=== PATIENT | female | born 1945 | race Caucasian/White ===

== ENCOUNTER 2021-01-30 03:40 | Emergency (ER) | payer MEDICARE, SELFPAY ==
[2021-01-30] VITALS (7 sets, daily range): BP systolic 84–111; BP diastolic 39–50; PULSE 66–68; RESP 18–30; O2SAT 100; BMI 36.8
--- NOTE | 2021-01-30 03:49 | W.ED.GIBLEED ---
HPI - GI Bleed General: Chief complaint: GI Bleed Stated complaint: RECTAL BLEEDING Time Seen by Provider: 01/30/21 03:44 Source: patient and EMS Mode of arrival: EMS Limitations: no limitations History of Present Illness: HPI Narrative: 75-year-old female states that she had a colonoscopy done yesterday at [facility] in [place] she had a mass removed and some polyps. States she got an overnight had a very large bloody bowel movement and has had some weakness since then. She denies any dark stools states is all bright red. Denies any vomiting blood denies any pain. Associated symptoms: Denies chills, easy bruising, fever(s), headache(s) or rash Review of Systems Const: Denies: fever(s), chills, body aches or change in appetite Eyes: Denies: blurry vision or eye discomfort ENMT: Denies: throat pain or dental pain Card: Denies: chest pain Resp: Denies: dyspnea GI: Reports: hematochezia : Denies: dysuria Musc: Denies: neck pain or back pain Skin/Breast: Denies: rash Neuro: Denies: headache(s) Psych: Denies: depression Bruce/Lymph: Denies: easy bruising All/Imm: Denies: urticaria Physical Exam Const: COMMON NORMALS: no acute distress and patient oriented x3 GENERAL APPEARANCE: ill appearing HENMT: COMMON NORMALS: normocephalic and atraumatic HEAD & SCALP: normocephalic and atraumatic Eye: COMMON NORMALS: Equal, round and reactive pupils present and EOMs intact bilaterally PUPIL: Yes Equal, round and reactive pupils present Neck/C-Spine: COMMON NORMALS: full ROM and supple Chest: COMMONS NORMALS: normal inspection of the chest and normal palpation of entire chest wall Resp: COMMON NORMALS: normal respiratory effort, No retractions, No use of accessory muscles and clear to auscultation bilaterally AUSCULTATION: clear to auscultation bilaterally Cardio: COMMON NORMALS: regular rate, regular rhythm and No murmurs present (Cardio) RATE: regular rate RHYTHM: regular rhythm GI: COMMON NORMALS: Normal to inspection, nondistended, normoactive bowel sounds present, Soft to palpation, non-tender and no masses PALPATION: Yes Soft to palpation : OTHER: Patient had a bowel movement here very large amount of blood with blood clots Extremity: COMMON NORMALS: normal to inspection and full ROM Neuro: COMMON NORMALS: patient oriented x3, moves all extremities and no focal motor deficits Psych: COMMON NORMALS: mental status grossly normal, Normal thought process present and cooperative THOUGHT PROCESS: Normal thought process present Skin: COMMON NORMALS: no rashes or lesions noted and no wounds GENERAL SKIN EXAM: no rashes or lesions noted Course Vital Signs: Vital signs: Vital Signs Pulse Rate 66 01/30/21 03:40 Respiratory Rate 18 01/30/21 03:40 Blood Pressure 111/39 01/30/21 03:40 Pulse Oximetry 100 01/30/21 03:40 MDM - GI Bleed MDM Narrative: Medical decision making narrative: Patient presents here with a massive lower GI bleed she had a large bloody bowel movement at home and then had another large one here with blood clots she syncopized with both and was very diaphoretic and hypotensive here. Will transfuse 2 units. Patient's family requested transfer back to [facility] where she had just been discharged yesterday we also have no ICU availability so will transfer there due to continuity of care and ICU availability patient stable here at this time after blood transfusion. Lab Data: Labs: Lab Results 01/30/21 01/30/21 04:20 04:20 WBC 19.4 10^3/uL H 10 ^3/uL (4.0-10.0) RBC 2.47 10^6/uL L 10 ^6/uL (4.1-5.3) Hgb 7.1 g/dL L g/dL (11.5-15.3) Hct 22.3 % L % (37.0-47.0) MCV 90.3 fl fl (81-99) MCH 28.7 pg pg (28.0-34.0) MCHC 31.8 g/dL g/dL (30.0-36.0) RDW 14.6 % % (12.1-15.1) Plt Count 441 10^3/cmm H 10 ^3/cmm (130-400) MPV 11.0 fL H fL (7.4-10.4) Neut % (Auto) 79.5 % % Lymph % (Auto) 14.5 % % [place] % (Auto) 4.0 % % Eos % (Auto) 0.4 % % Baso % (Auto) 0.4 % % Neut # (Auto) 15.41 10^3/uL H 1 0^3/uL (1.8-7.7) Lymph # (Auto) 2.8 10^3/uL 10^3/ uL (0.8-4.8) [place] # (Auto) 0.8 10^3/uL 10^3/ uL (0.2-0.9) Eos # (Auto) 0.1 10^3/uL 10^3/ uL (0.0-0.8) Baso # (Auto) 0.1 10^3/uL 10^3/ uL (0.0-0.1) Nucleated RBC % (a uto) 0 % % Nucleated RBCs # 0.0 /100WBC /100W BC PT 14.70 SECONDS SEC ONDS (12.1-14.9) INR 1.11 (0.8-1.2) Discharge Plan Discharge Patient Disposition: Xfer Short-Term Hosp Clinical Impression: Lower gastrointestinal hemorrhage, Anemia Condition: Stable Coding Level of Care Code ED System Support Administrator for Chg Fwd Exam Comprehensive
[2021-01-30 04:32] LABS: Basophils # 0.1 10^3/uL (0.0-0.1); Basophils % 0.4 %; Eosinophils # 0.1 10^3/uL (0.0-0.8); Eosinophils % 0.4 %; Hematocrit 22.3 % (37.0-47.0); Hemoglobin 7.1 g/dL (11.5-15.3); Lymphocytes # 2.8 10^3/uL (0.8-4.8); Lymphocytes % 14.5 %; Mean Corpuscular HGB Conc 31.8 g/dL (30.0-36.0); Mean Corpuscular Hemoglobin 28.7 pg (28.0-34.0); Mean Corpuscular Volume 90.3 fl (81-99); Monocytes # 0.8 10^3/uL (0.2-0.9); Neutrophils # 15.41 10^3/uL (1.8-7.7); Neutrophils % 79.5 %; Nucleated Red Blood Cells % 0 %; Platelet Count 441 10^3/cmm (130-400); Red Blood Count 2.47 10^6/uL (4.1-5.3); Red Cell Distribution Width 14.6 % (12.1-15.1); White Blood Count 19.4 10^3/uL (4.0-10.0)
[2021-01-30 05:11] LABS: INR 1.11 (0.8-1.2)
[2021-01-30] MEDS: sodium chloride 0.9% (100 ml) 100 ML (05:38)
--- NOTE | 2021-01-30 05:40 | PC.NURSE ---
Addendum entered by Melanie De La Cruz RN 01/30/21 05:52: unit [id number] ONEG EXP 03-02-21 HR 68 RESP 30 BP 88/44 100% 1L O2 Witnessed by Mahin Clemente RN Original Note: O neg emergent blood started at 0538.
--- NOTE | 2021-01-30 05:57 | PC.NURSE ---
Unable to obtain a temp orally or axillary. Leila hugger in place.
--- NOTE | 2021-01-30 06:26 | PC.NURSE ---
2nd emergent unit of blood initiated 0630 Unit [id number] A Pos Exp 02/02/21 [id number] Verified by [email or web address] HR69 BP 93/50 100% O2 NC 2L RR 24
[2021-01-30] MEDS: sodium chloride 0.9% 1,000 ML 999 ML IV (06:30)
[2021-01-30 06:47] LABS: Alanine Aminotransferase 23 U/L (0-33); Alkaline Phosphatase 63 IU/L (35-105); Anion Gap 19.4 (5-19); Aspartate Amino Transferase 12 U/L (0-32); Blood Urea Nitrogen 19 mg/dL (8-23); Carbon Dioxide 18 mmol/L (22-29); Chloride 103 mmol/L (98-107); Globulin 1.6 g/dL (1.3-4.6); Glucose 423 mg/dL (65-115); Osmolality Calculated 302 mOsm/kg (285-295); Potassium 4.4 mmol/L (3.5-5.1); Sodium 136 mmol/L (136-145); Total Bilirubin 0.5 mg/dL (0.15-1.2); Total Protein 4.6 g/dL (6.6-8.7)
--- NOTE | 2021-01-30 06:52 | PC.NURSE ---
0640 air evac arrived to transport pt.
--- NOTE | 2021-01-31 23:33 | PC.NURSE ---
Addendum to chartinrd unit of blood was sent with air evac for transfusion en route.
== END 2021-01-30 06:50 | disposition short-term general hospital (02) ==
PROVIDERS: Emergency Provider Emergency Medicine
DX: K92.2 Gastrointestinal hemorrhage, unspecified (principal); D64.9 Anemia, unspecified
CPT/HCPCS: 36430; 80053; 85025; 85610; 86850; 86900; 86920; 99291; 99292; J7030; P9016

== ENCOUNTER 2021-02-09 00:35 | Observation (INO) | payer MEDICARE, SELFPAY ==
[2021-02-09] VITALS (15 sets, daily range): BP systolic 146–193; BP diastolic 50–77; PULSE 71–82; RESP 15–20; TEMP 36.6–36.8; O2SAT 97–99; BMI 36.8; BMI 37.6
--- NOTE | 2021-02-09 00:40 | W.ED.WEAKNES ---
HPI - Weakness General: Chief complaint: Weakness Stated complaint: Weakness/ hyperglycemia Time Seen by Provider: 02/09/21 00:35 Source: patient and EMS Mode of arrival: EMS Limitations: no limitations History of Present Illness: HPI Narrative: 75-year-old female who has a history of GI bleeds had actually seen her 1 week ago where she had a severe episode of lower GI bleed after a GI scope I transfused her here and transferred to [place] she states she left there 1 week ago they had to do no other intervention she states the bleeding stopped on its own she is been home for a week states that today she has been having increasing weakness and her blood sugar is gotten high she states that it was running in the 400s and over 500 today she takes Lantus she believes she took her right dose she denies any dysuria denies any fever denies any more blood in her stool denies any worsening improving factors. Associated symptoms: Denies chest pain, chills, dysuria, easy bruising, fever(s), headache(s), nausea or vomiting Review of Systems Const: Denies: fever(s), chills, body aches or change in appetite Eyes: Denies: blurry vision or eye discomfort ENMT: Denies: throat pain or dental pain Card: Denies: chest pain Resp: Denies: dyspnea GI: Denies: abdominal pain, nausea, vomiting or diarrhea : Denies: dysuria Musc: Denies: neck pain or back pain Skin/Breast: Denies: rash Neuro: Denies: headache(s) Psych: Denies: depression Bruce/Lymph: Denies: easy bruising All/Imm: Denies: urticaria Physical Exam Const: COMMON NORMALS: no acute distress, patient oriented x3 and healthy appearing HENMT: COMMON NORMALS: normocephalic and atraumatic HEAD & SCALP: normocephalic and atraumatic Eye: COMMON NORMALS: Equal, round and reactive pupils present and EOMs intact bilaterally PUPIL: Yes Equal, round and reactive pupils present Neck/C-Spine: COMMON NORMALS: full ROM and supple Chest: COMMONS NORMALS: normal inspection of the chest and normal palpation of entire chest wall Resp: COMMON NORMALS: normal respiratory effort, No retractions, No use of accessory muscles and clear to auscultation bilaterally AUSCULTATION: clear to auscultation bilaterally Cardio: COMMON NORMALS: regular rate, regular rhythm and No murmurs present (Cardio) RATE: regular rate RHYTHM: regular rhythm GI: COMMON NORMALS: Normal to inspection, nondistended, normoactive bowel sounds present, Soft to palpation, non-tender and no masses PALPATION: Yes Soft to palpation Extremity: COMMON NORMALS: normal to inspection and full ROM Neuro: COMMON NORMALS: patient oriented x3, moves all extremities and no focal motor deficits Psych: COMMON NORMALS: mental status grossly normal, Normal thought process present and cooperative THOUGHT PROCESS: Normal thought process present Skin: COMMON NORMALS: no rashes or lesions noted and no wounds GENERAL SKIN EXAM: no rashes or lesions noted Course Vital Signs: Vital signs: Vital Signs Temperature 97.8 F 02/09/21 00:37 Pulse Rate 71 02/09/21 00:37 Respiratory Rate 18 02/09/21 00:37 Blood Pressure 146/50 02/09/21 00:37 Pulse Oximetry 99 02/09/21 00:37 MDM - Weakness MDM Narrative: Medical decision making narrative: Patient presents with generalized weakness could be due to her anemia along with her hyperglycemia patient is anemic with a hemoglobin of 6.8 her blood pressures here been stable she has no signs of hemodynamic compromise. Rectal exam showed brown stool that was Hemoccult positive no signs of any large bleeding will transfuse patient patient also given insulin for hyperglycemia I spoke to the hospitalist will admit. Lab Data: Labs: Lab Results 02/09/21 02/09/21 02/09/21 00:55 01:30 01:30 WBC 10.3 10^3/uL H 10 ^3/uL (4.0-10.0) RBC 2.43 10^6/uL L 10 ^6/uL (4.1-5.3) Hgb 6.8 g/dL L g/dL (11.5-15.3) Hct 23.7 % L % (37.0-47.0) MCV 97.5 fl fl (81-99) MCH 28.0 pg pg (28.0-34.0) MCHC 28.7 g/dL L g/dL (30.0-36.0) RDW 14.6 % % (12.1-15.1) Plt Count 304 10^3/cmm 10^3 /cmm (130-400) MPV 10.5 fL H fL (7.4-10.4) Neut % (Auto) 82.6 % % Lymph % (Auto) 11.6 % % [place] % (Auto) 3.9 % % Eos % (Auto) 0.8 % % Baso % (Auto) 0.6 % % Neut # (Auto) 8.48 10^3/uL H 10 ^3/uL (1.8-7.7) Lymph # (Auto) 1.2 10^3/uL 10^3/ uL (0.8-4.8) [place] # (Auto) 0.4 10^3/uL 10^3/ uL (0.2-0.9) Eos # (Auto) 0.1 10^3/uL 10^3/ uL (0.0-0.8) Baso # (Auto) 0.1 10^3/uL 10^3/ uL (0.0-0.1) Nucleated RBC % (a uto) 0 % % Nucleated RBCs # 0.0 /100WBC /100W BC Sodium 134 mmol/L L mmol /L (136-145) Potassium 5.0 mmol/L mmol/L (3.5-5.1) Chloride 103 mmol/L mmol/L (98-107) Carbon Dioxide 20 mmol/L L mmol/ L (22-29) Anion Gap 16.0 (5-19) BUN 51 mg/dL H mg/dL (8-23) Creatinine 1.2 mg/dL H mg/dL (0.5-0.9) GFR Calculation Not Reportable Glucose 437 mg/dL H mg/dL (65-115) POC Glucose 470 mg/dL H mg/dL (70-110) Calculated Osmolal ity 310 mOsm/kg H mOs m/kg (285-295) Calcium 8.8 mg/dL mg/dL (8.5-10.5) Iron TIBC % Saturation Unsat Iron Binding Total Bilirubin 0.2 mg/dL mg/dL (0.15-1.2) AST 8 U/L U/L (0-32) ALT 17 U/L U/L (0-33) Alkaline Phosphata se 79 IU/L IU/L (35-105) Total Protein 5.0 g/dL L g/dL (6.6-8.7) Albumin 3.3 g/dL L g/dL (3.5-5.2) Globulin 1.7 g/dL g/dL (1.3-4.6) Urine Color Urine Appearance Urine pH Ur Specific Gravit y Urine Protein Urine Glucose (UA) Urine Ketones Urine Blood Urine Nitrate Urine Bilirubin Urine Urobilinogen Ur Leukocyte Viri ase Urine RBC Urine WBC Ur Squamous Epith Cells Amorphous Sediment Urine Bacteria Serum Ketones Blood Type Rho(D) Type Antibody Screen Crossmatch 02/09/21 02/09/21 02/09/21 01:30 01:30 01:45 WBC RBC Hgb Hct MCV MCH MCHC RDW Plt Count MPV Neut % (Auto) Lymph % (Auto) [place] % (Auto) Eos % (Auto) Baso % (Auto) Neut # (Auto) Lymph # (Auto) [place] # (Auto) Eos # (Auto) Baso # (Auto) Nucleated RBC % (a uto) Nucleated RBCs # Sodium Potassium Chloride Carbon Dioxide Anion Gap BUN Creatinine GFR Calculation Glucose POC Glucose Calculated Osmolal ity Calcium Iron 36 ug/dL L ug/dL (37-145) TIBC 271 mcg/dl mcg/dl % Saturation 13.2 % L % (20-50) Unsat Iron Binding 235 ug/dL ug/dL (112-347) Total Bilirubin AST ALT Alkaline Phosphata se Total Protein Albumin Globulin Urine Color Urine Appearance Urine pH Ur Specific Gravit y Urine Protein Urine Glucose (UA) Urine Ketones Urine Blood Urine Nitrate Urine Bilirubin Urine Urobilinogen Ur Leukocyte Viri ase Urine RBC Urine WBC Ur Squamous Epith Cells Amorphous Sediment Urine Bacteria Serum Ketones Negative (Negative) Blood Type A Positive Rho(D) Type Positive Antibody Screen Negative Crossmatch See Detail 02/09/21 01:45 WBC RBC Hgb Hct MCV MCH MCHC RDW Plt Count MPV Neut % (Auto) Lymph % (Auto) [place] % (Auto) Eos % (Auto) Baso % (Auto) Neut # (Auto) Lymph # (Auto) [place] # (Auto) Eos # (Auto) Baso # (Auto) Nucleated RBC % (a uto) Nucleated RBCs # Sodium Potassium Chloride Carbon Dioxide Anion Gap BUN Creatinine GFR Calculation Glucose POC Glucose Calculated Osmolal ity Calcium Iron TIBC % Saturation Unsat Iron Binding Total Bilirubin AST ALT Alkaline Phosphata se Total Protein Albumin Globulin Urine Color Yellow (Yellow) Urine Appearance Clear (CLEAR) Urine pH 5 (5-7) Ur Specific Gravit y 1.015 (1.005-1.030) Urine Protein Neg (Negative) Urine Glucose (UA) 4+ H (Normal) Urine Ketones Negative (Negative) Urine Blood 2+ H (Negative) Urine Nitrate Negative (Negative) Urine Bilirubin Neg (Negative) Urine Urobilinogen Neg mg/dL mg/dL (Negative) Ur Leukocyte Viri ase Negative (Negative) Urine RBC 0-4 /hpf H /hpf (0-2) Urine WBC Rare /hpf /hpf (0-5) Ur Squamous Epith Cells 5-10 /hpf H /hpf (0-5) Amorphous Sediment Not Reportable Urine Bacteria Trace /hpf /hpf (NONE) Serum Ketones Blood Type Rho(D) Type Antibody Screen Crossmatch Imaging Data^: CXR: Attestation: I personally reviewed and interpreted this imaging study as follows: Radiologist's impression: [address] [address] XRay Report Signed Patient: Nidhi Laurent Unit #: [id number] : 1945 Age/Sex: 75 / F ADM Date: 02/09/21 Loc: ER Room/Bed: Attending Dr: Ordering Provider/Ordering MD: Shefali Epstein MD Date of Service: 02/09/21 Procedure(s): XR chest 1V portable [id number] Accession Number(s): [id number] Report Number: [id number] PROCEDURE INFORMATION: Exam: XR Chest Exam date and time: 02/09/2021 12:39 AM Age: 75 years old Clinical indication: Patient HX: General weakness. Blood sugar of five hundred. TECHNIQUE: Imaging protocol: XR of the chest. Views: 1 view. COMPARISON: No relevant prior studies available. FINDINGS: Lungs: Lungs are clear. Pleural spaces: There is no pleural effusion or pneumothorax. Heart/Mediastinum: Cardiomediastinal contours are unremarkable. Bones/joints: Bones are unremarkable. XR/XR chest 1V portable [id number] IMPRESSION: No acute findings. Radiation Dose CTDIVOL = (mGy): DLP = (mGy-cm) Dictated By: Cheikh Rader MD Signed By: Cheikh Rader MD Signed Date/Time: 02/09/21 0054 Discharge Plan Discharge Patient Disposition: Admitted As Inpatient Clinical Impression: Hyperglycemia Anemia Qualifiers: Anemia type: unspecified type Qualified Code(s): D64.9 - Anemia, unspecified GI bleed Qualifiers: GI bleed type/associated pathology: unspecified gastrointestinal hemorrhage type Qualified Code(s): K92.2 - Gastrointestinal hemorrhage, unspecified Condition: Stable Coding Level of Care Code ED Dramatic Teacher for Chg Fwd Exam Comprehensive
[2021-02-09 00:58] LABS: Glucose Point of Care 470 mg/dL (70-110)
[2021-02-09] MEDS: insulin regular-human 100 units/1 mL 10 UNIT IVP (01:00)
[2021-02-09] MEDS: sodium chloride 0.9% 1,000 ML 999 ML IV (01:00)
[2021-02-09 01:38] LABS: Basophils # 0.1 10^3/uL (0.0-0.1); Basophils % 0.6 %; Eosinophils # 0.1 10^3/uL (0.0-0.8); Eosinophils % 0.8 %; Hematocrit 23.7 % (37.0-47.0); Hemoglobin 6.8 g/dL (11.5-15.3); Lymphocytes # 1.2 10^3/uL (0.8-4.8); Lymphocytes % 11.6 %; Mean Corpuscular HGB Conc 28.7 g/dL (30.0-36.0); Mean Corpuscular Volume 97.5 fl (81-99); Mean Platelet Volume 10.5 fL (7.4-10.4); Monocytes # 0.4 10^3/uL (0.2-0.9); Monocytes % 3.9 %; Neutrophils # 8.48 10^3/uL (1.8-7.7); Neutrophils % 82.6 %; Nucleated Red Blood Cells % 0 %; Platelet Count 304 10^3/cmm (130-400); Red Blood Count 2.43 10^6/uL (4.1-5.3); Red Cell Distribution Width 14.6 % (12.1-15.1); White Blood Count 10.3 10^3/uL (4.0-10.0)
[2021-02-09 01:48] LABS: Ketone (Acetest) Serum Negative (Negative)
[2021-02-09 01:58] LABS: Alanine Aminotransferase 17 U/L (0-33); Albumin Level 3.3 g/dL (3.5-5.2); Alkaline Phosphatase 79 IU/L (35-105); Aspartate Amino Transferase 8 U/L (0-32); Blood Urea Nitrogen 51 mg/dL (8-23); Calcium 8.8 mg/dL (8.5-10.5); Carbon Dioxide 20 mmol/L (22-29); Chloride 103 mmol/L (98-107); Globulin 1.7 g/dL (1.3-4.6); Glucose 437 mg/dL (65-115); Osmolality Calculated 310 mOsm/kg (285-295); Sodium 134 mmol/L (136-145); Total Bilirubin 0.2 mg/dL (0.15-1.2); Unsaturated Iron Binding 235 ug/dL (112-347)
[2021-02-09 02:43] LABS: Iron 36 ug/dL (37-145)
[2021-02-09 02:44] LABS: Percent Saturation 13.2 % (20-50); Total Iron Binding Capacity 271 mcg/dl
[2021-02-09 03:05] LABS: Add Urine Microscopic? YES; Bilirubin Urine Neg (Negative); Blood Urine 2+ (Negative); Glucose Urine UA 4+ (Normal); Ketones Urine Negative (Negative); Leukocyte Esterase Urine Negative (Negative); Nitrate Urine Negative (Negative); Protein Urine Neg (Negative); Specific Gravity, Urine 1.015 (1.005-1.030); Urine Appearance Clear (CLEAR); Urine Color Yellow (Yellow); Urobilinogen Urine Neg (Negative); pH Urine 5 (5-7)
[2021-02-09 03:07] LABS: Add Urine Culture? No; Bacteria Urine TRACE /hpf; RBC Urine 0-4 /hpf (0-2); WBC Urine RARE /hpf (0-5)
[2021-02-09] MEDS: pantoprazole 40 mg SDV 80 MG IVP (04:09)
[2021-02-09 04:32] LABS: Glucose Point of Care 350 mg/dL (70-110)
--- NOTE | 2021-02-09 06:14 | P.HP_ITS ---
Providers/Chief Complaint Admitting Physician: Jannie Marquez MD Chief Complaint: Weakness/ hyperglycemia History of Present Illness Nidhi Laurent is a 75 year old female recently transferred to [place] on 01/30 after presenting initially at [facility] for LGI bleed and resulting hypotension from volume loss. She had recently undergone a polypectomy prior to 01/30. She reports that after transfer the bleeding had stopped, uncertain if she underwent any interventions for the same. Presents today with c/o generalized weakness and noted elevated fingersticks at home. Rectal exam in the ED showed brown stools that was FOBT positive. BUN additionally elevated which may be represntative of blood transit through GI tract. Hb noted to be low at 6.7,unknown Hb at discharge from recent hospital admission. FS elevated at 470, normal anion gap. Review of Systems General: Reports: 10 or more systems reviewed and unremarkable except in HPI and below Const: Denies: fever(s), chills or body aches Eyes: Denies: change in vision, blurry vision or photophobia ENMT: Denies: throat pain, enlarged tonsils, odynophagia or nasal congestion Card: Denies: chest pain, palpitations, irregular heart rhythm, edema, swel ling of feet/ankles, lightheadedness, pre-syncope, dyspnea on exertion or orthopnea Resp: Denies: dyspnea, productive cough, non-productive cough, wheezing, stridor, pain on inspiration, change in phlegm color, hemoptysis or chest congestion GI: Denies: abdominal pain, nausea, vomiting, hematemesis, coffee ground emesis, dysphagia, heartburn, diarrhea, constipation, GI cramping, change in stool character, hematochezia or melena : Denies: flank pain, difficulty voiding, dysuria, urinary frequency, urinary urgency, urinary hesitancy or hematuria Musc: Denies: neck pain, back pain, extremity pain, joint swelling, joint warmth or deformity Neuro: Denies: headache(s), numbness in extremities, weakness in extremities, sensory changes, difficulty walking, frequent falls, dizziness, vertigo, behavioral changes, Slurred speech present or seizure-like activity Psych: Denies: anxiety, depression, suicidal ideation or homicidal ideation Endo: Denies: polyuria, polydipsia, tired all the time, cold intolerance or hot flashes Bruce/Lymph: Denies: easy bruising or easy bleeding Medications/Allergies Home Medications Medication Instructions Recorded Confirmed Last Taken Type amlodipine 10 mg PO DAILY 01/30/21 02/09/21 Unknown History furosemide 40 mg PO BID 01/30/21 02/09/21 Unknown History glimepiride 1 mg PO BID 01/30/21 02/09/21 Unknown History insulin glargine [Lantus U-100 80 unit SUBCUT QAM 01/30/21 02/09/21 Unknown History Insulin] metoprolol tartrate 100 mg PO BID 01/30/21 02/09/21 Unknown History olmesartan 40 mg PO DAILY 01/30/21 02/09/21 Unknown History potassium chloride 20 meq PO DAILY 01/30/21 02/09/21 Unknown History Allergies Allergy/AdvReac Type Severity Reaction Status Date / Time codeine Allergy ADR-Itching Verified 02/09/21 00:54 Sulfa (Sulfonamide Allergy ADR-Itching Verified 02/09/21 00:54 Antibiotics) PFSH Acute PFSH: Medical History (Updated 02/09/21 @ 12:37 by Jannie Marquez MD) Diabetes mellitus GI bleed Hypertension Family History (Updated 02/09/21 @ 06:28 by Laura Pena RN) Sister Cancer Brother Cancer Vitals/I&O/Wt Last Vital Signs Temp 97.9 F 02/09/21 06:06 Pulse 77 02/09/21 06:06 Resp 18 02/09/21 06:06 BP 188/68 02/09/21 06:06 Pulse Ox 99 02/09/21 06:06 02/08/21 02/08/21 02/09/21 14:59 22:59 06:59 Intake Total 1000 / 1000 Balance 1000 / 1000 Weight last 48 hrs Weight 106.594 kg Physical Exam Narrative: EXAM NARRATIVE: General: No acute distress, AO x3 HEENT: PERRLA, pupils bilaterally equal and reactive, pallors not present Chest: Normal vesicular breath sounds, no added sounds, equal good air entry bilaterally CVS: S1-S2 regular, no murmurs, no tachycardia, no gallops, no rubs Abdomen: Soft, nontender, no organomegaly, bowel sounds present Neuro: No focal deficits, no facial deformity, AO x3, power 5/5 in all limbs Data : 02/09/21 01:30 02/09/21 01:30 A&P Assessment and plan (1) Anemia: Status: Acute Qualifiers: Anemia type: unspecified type Qualified Code(s): D64.9 - Anemia, unspecified (2) Hyperglycemia: Status: Acute (3) GI bleed: Status: Acute Qualifiers: GI bleed type/associated pathology: unspecified gastrointestinal he morrhage type Qualified Code(s): K92.2 - Gastrointestinal hemorrhage, unsp ecified Additional A&P Information Patient with recent LGI bleeding on 01/30 needing urgent transfer to [place] at the time. Reportedly bleeding stopped spontaneously. Records requested from this admission. Currently without active bleeding, rectal exam in ER with brown stools, hemoccult +, likely from recent GI bleed Now p/w generalized weakness, found to have Hb 6.8 for which she has been ordered for one unit blood transfusion. recheck H&H at 11am post transfusion Also noted to have elevated blood sugar ~470, no signs of DKA or HHS at this time. Normal anion gap. Start high dose insulin sliding scale, continue home dose of Lantus 80U qam Also noted BP 170-180 range: start home medications including amlodipine 10mg daily,metoprolol 100mg BID and olemsartan. Holding Lasix for now, clinically euvolemic Attestations Medical Necessity Statement*: anticipate less than 2 midnight observation stay for above defined care Coding Level of Care Code Acute Coffee Shop Attendant for Chg Fwd Diagnoses Anemia D64.9 Anemia type: unspecified type Hyperglycemia R73.9 GI bleed K92.2 GI bleed type/associated pathology: unspecified gastrointestinal hemorrhage type
[2021-02-09 06:58] LABS: Glucose Point of Care 318 mg/dL (70-110)
[2021-02-09] MEDS: pantoprazole DR 40 mg Tablet PO ×2 (08:15→16:57)
[2021-02-09] MEDS: insulin lispro 100 unit/1 mL SUBCUT ×3 (08:15→23:31)
[2021-02-09] MEDS: amlodipine 10 mg Tablet PO (08:15)
[2021-02-09] MEDS: losartan 50 mg Tablet 100 MG PO (08:15)
[2021-02-09] MEDS: metoprolol tartrate 50 mg Tablet 100 MG PO ×2 (08:15→20:30)
[2021-02-09 11:05] LABS: Glucose Point of Care 291 mg/dL (70-110)
[2021-02-09 12:14] LABS: Hematocrit 28.2 % (37.0-47.0); Hemoglobin 8.9 g/dL (11.5-15.3)
[2021-02-09] MEDS: acetaminophen 325 mg Tablet 650 MG PO ×2 (13:25→20:30)
[2021-02-09] MEDS: TRAMadol 50 mg Tablet PO ×2 (16:53→23:32)
[2021-02-09 17:03] LABS: Glucose Point of Care 106 mg/dL (70-110)
--- NOTE | 2021-02-09 19:08 | PC.NURSE ---
Shift report received from Lisette LOPEZ. Patient in bed /resting. IV R FA intact/patent. Patient rates pain at a 3/10 BLE/PRN recently administered. Assisted to BSC/ call light in reach.
[2021-02-09 20:52] LABS: Glucose Point of Care 180 mg/dL (70-110)
[2021-02-09] MEDS: ropinirole 1 mg Tablet PO (21:33)
[2021-02-10] VITALS: BP 161/66; PULSE 71; RESP 16; TEMP 36.7; O2SAT 99
[2021-02-10 04:00] VITALS: BP 156/61; PULSE 73; RESP 17; TEMP 36.7; O2SAT 97
[2021-02-10 06:34] LABS: Glucose Point of Care 107 mg/dL (70-110)
[2021-02-10 07:23] VITALS: BP 168/78; PULSE 74; RESP 16; TEMP 36.8; O2SAT 97
[2021-02-10 09:31] VITALS: BP 168/78
[2021-02-10] MEDS: losartan 50 mg Tablet 100 MG PO (09:31)
[2021-02-10] MEDS: pantoprazole DR 40 mg Tablet PO (09:32)
[2021-02-10] MEDS: amlodipine 10 mg Tablet PO (09:32)
[2021-02-10] MEDS: metoprolol tartrate 50 mg Tablet 100 MG PO (09:32)
[2021-02-10 11:02] LABS: Glucose Point of Care 272 mg/dL (70-110)
[2021-02-10] MEDS: TRAMadol 50 mg Tablet PO (11:31)
--- NOTE | 2021-02-10 11:42 | PM.DCS ---
Discharge Providers Date of Admission: 02/09/21 02:20 Date of Discharge: February 10, 2021 Attending Provider at Admission: Jannie Marquez MD Attending Provider at Discharge: Darryl Hough MD Diagnoses at Discharge Discharge Diagnosis (1) Anemia: Status: Acute Qualifiers: Anemia type: unspecified type Qualified Code(s): D64.9 - Anemia, unspecified (2) Hyperglycemia: Status: Acute (3) GI bleed: Status: Acute Qualifiers: GI bleed type/associated pathology: unspecified gastrointestinal hemorrhage type Qualified Code(s): K92.2 - Gastrointestinal hemorrhage, unspecified Reason for Visit Reason for Visit: Weakness/ hyperglycemia Hospital Course Hospital Course History of Present Illness:- Nidhi Laurent is a 75 year old female recently transferred to [place] on 01/30 after presenting initially at [facility] for LGI bleed and resulting hypotension from volume loss. She had recently undergone a polypectomy prior to 01/30. She reports that after transfer the bleeding had stopped, uncertain if she underwent any interventions for the same. Presents today with c/o generalized weakness and noted elevated fingersticks at home. Rectal exam in the ED showed brown stools that was FOBT positive. BUN additionally elevated which may be represntative of blood transit through GI tract. Hb noted to be low at 6.7,unknown Hb at discharge from recent hospital admission. FS elevated at 470, normal anion gap Hosp course:- 75-year-old female who was admitted for evaluation and management of acute on chronic anemia. No active GI bleed noted during hospitalization. She was given 1 unit PRBC. Which improved her hemoglobin to 8.9. She remained hemodynamically stable. Patient is stating that since her colon anoscopy she has not noticed any melanotic stools, hematemesis or hematuria. This most likely is related to postprocedural bleeding. She will be discharged on 02/10 with iron and Protonix supplementation. Patient was told to follow-up with her GI senior business consultant in [place] if she would notice recurrent bleeding episodes at home. Physical Exam Narrative: EXAM NARRATIVE: Obese female No active chest pain or shortness of breath Abdomen distended, visceral obesity Saturating well on room air Lower extremity nonpitting edema Edema, PERRLA nonfocal neuro exam No active abdominal pain no signs of peritonitis Discharge Data Data Completed and Pending: Completed Studies During Hospitalization Category Date Time Status XR chest 1V amadeo ble [id number] Urgent Exams 02/09/21 00:39 Completed Labs from last 24 hours 02/10/21 02/10/21 02/09/21 10:56 06:26 20:46 Hgb Hct POC Glucose 272 H 107 180 H 02/09/21 02/09/21 16:55 12:08 Hgb 8.9 L D Hct 28.2 L POC Glucose 106 Vitals: Last Vital Signs Temp 98.3 F 02/10/21 07:23 Pulse 74 02/10/21 07:23 Resp 16 02/10/21 07:23 BP 168/78 02/10/21 09:31 Pulse Ox 97 02/10/21 07:23 Discharge Plan Discharge Patient Disposition: Home Condition: Stable Prescriptions: New FeroSul 325 mg (65 mg iron) tablet 325 mg PO EVERY OTHER DAY Qty: 30 RF: 2 Protonix [address] for susp in packet 40 mg PO DAILY Qty: 30 RF: 3 Continued metoprolol tartrate 100 mg Tablet 100 mg PO BID RF: 0 glimepiride 1 mg Tablet 1 mg PO BID RF: 0 amlodipine 10 mg Tablet 10 mg PO BID RF: 0 olmesartan 40 mg Tablet 40 mg PO DAILY RF: 0 insulin glargine 100 unit/mL Cartridge 80 unit SUBCUT QAM RF: 0 ropinirole 1 mg Tablet 1 mg PO BEDTIME RF: 0 Held furosemide 40 mg Tablet 40 mg PO BID RF: 0 Hold Instructions: Resume on 02/12/21. potassium chloride 20 mEq Tablet Extended Release 20 meq PO DAILY RF: 0 Hold Instructions: Resume on 02/13/21. Discharge Orders: Discharge Order (Routine); Ordered 02/10/21 Ordered By: Darryl Hough Patient Instructions: Iron Supplements (By mouth) (Duofer, Fe-20, Bifera, Cl-Iron), Gastrointestinal Bleeding (DC), Anemia (DC), Diabetic Hyperglycemia (DC), Opioid Safety Discharge Attestations Time Spent in Discharge Care*: less than 30 min Quality Metrics Clinical Quality Measures During this hospital stay, did patient experience: None Coding Level of Care Code Acute Chg FW DC note Diagnoses Anemia D64.9 Anemia type: unspecified type Hyperglycemia R73.9 GI bleed K92.2 GI bleed type/associated pathology: unspecified gastrointestinal hemorrhage type
[2021-02-10 11:51] VITALS: BP 155/77; PULSE 70; RESP 16; TEMP 36.9; O2SAT 96
[2021-02-10 12:15] VITALS: BP 155/77; PULSE 70; RESP 16; TEMP 36.9; O2SAT 96
== END 2021-02-10 12:17 | disposition home or self-care (01) ==
LOC: ER 02:40 → MEDSURG 04:11
PROVIDERS: Admitting Provider Student in an Organized Health Care Education/Training Program; Emergency Provider Emergency Medicine; Visit Provider Internal Medicine
DX: D64.9 Anemia, unspecified (principal); R73.9 Hyperglycemia, unspecified; K92.2 Gastrointestinal hemorrhage, unspecified; E11.9 Type 2 diabetes mellitus without complications; I10 Essential (primary) hypertension; E66.9 Obesity, unspecified; Z68.37 Body mass index [BMI] 37.0-37.9, adult; Z79.4 Long term (current) use of insulin; Z79.84 Long term (current) use of oral hypoglycemic drugs
CPT/HCPCS: 36415; 36416; 36430; 71045; 80053; 81001; 82009; 82962; 83540; 83550; 85014; 85018; 85025; 86850; 86900; 86920; 96361; 96372; 96374; 96375; 99285; C9113; G0378; J1815; J7030; P9016

== ENCOUNTER 2021-02-13 05:59 | Emergency (ER) | payer MEDICARE, SELFPAY ==
[2021-02-13] VITALS (9 sets, daily range): BP systolic 149–188; BP diastolic 56–99; PULSE 83–92; RESP 16–18; TEMP -12.4–37.1; O2SAT 95–98; BMI 35.9
--- NOTE | 2021-02-13 06:10 | XRR_ITS ---
PROCEDURE INFORMATION: Exam: XR Chest Exam date and time: 02/13/2021 6:10 AM Age: 75 years old Clinical indication: Dyspnea; Patient HX: SOB this am; Additional info: Dyspnea/cough TECHNIQUE: Imaging protocol: XR of the chest. Views: 1 view. COMPARISON: CR XR chest 1V portable [id number] 02/09/2021 12:44 AM FINDINGS: Lungs: Unremarkable. No consolidation. Pleural spaces: Unremarkable. No pleural effusion. No pneumothorax. Heart/Mediastinum: Stable cardiomediastinal silhouette. Bones/joints: Unremarkable. XR/XR chest 1V portable [id number] IMPRESSION: No acute findings.
--- NOTE | 2021-02-13 06:10 | ECG_ITS ---
[facility] Test Date: 2021-02-13 Pat Name: Nidhi Laurent Department: Room: Gender: Female [employer] Lineman: : 1945 Requested By: Glenn Carrion Order Number: [id number] Reading MD: HERNAN CASTILLO Measurements Intervals [place] Rate: 78 P: 76 ID: [id number] QRS: -25 QRSD: 122 T: 43 QT: 371 QTc: 423 Interpretive Statements SINUS RHYTHM BORDERLINE LEFT AXIS DEVIATION [QRS AXIS < -20] RIGHT BUNDLE BRANCH BLOCK [120+ ms QRS DURATION, UPRIGHT V1, 40+ ms S IN I/aVL/V4/V5/V6] No previous ECG available for comparison Electronically Signed On 02-13-2021 20:01:25 HIDE GRADER by HERNAN CASTILLO [email or web address]
[2021-02-13 06:23] LABS: Basophils # 0.1 10^3/uL (0.0-0.1); Basophils % 0.8 %; Eosinophils # 0.1 10^3/uL (0.0-0.8); Eosinophils % 1.2 %; Hematocrit 25.9 % (37.0-47.0); Hemoglobin 7.8 g/dL (11.5-15.3); Lymphocytes # 1.5 10^3/uL (0.8-4.8); Lymphocytes % 16.8 %; Mean Corpuscular HGB Conc 30.1 g/dL (30.0-36.0); Mean Corpuscular Hemoglobin 28.2 pg (28.0-34.0); Mean Corpuscular Volume 93.5 fl (81-99); Mean Platelet Volume 10.8 fL (7.4-10.4); Monocytes # 0.4 10^3/uL (0.2-0.9); Monocytes % 4.3 %; Neutrophils # 6.64 10^3/uL (1.8-7.7); Neutrophils % 76.6 %; Nucleated Red Blood Cells % 0 %; Platelet Count 360 10^3/cmm (130-400); Red Blood Count 2.77 10^6/uL (4.1-5.3); Red Cell Distribution Width 14.2 % (12.1-15.1); White Blood Count 8.7 10^3/uL (4.0-10.0)
--- NOTE | 2021-02-13 06:26 | W.ED.WEAKNES ---
HPI - Weakness General: Chief complaint: Weakness Stated complaint: WEAKNESS Time Seen by Provider: 02/13/21 06:04 History of Present Illness: HPI Narrative: 75-year-old female returns emergency room complaining of generalized weakness. Patient was recently hospitalized for significant GI bleed and transferred to [place]. Since she was discharged from there she was rehospitalized here with recurrent anemia and hyperglycemia. She was discharged home 3 days ago. She denies any further hematochezia melena hematemesis or coffee-ground emesis she returns today because she simply states she felt weak and was concerned that the weakness and indication she had bleeding again. Patient does have a history of hypertension as well as diabetes mellitus. MD Complaint: generalized weakness Onset (ago): minute(s) Duration: constant Location: generalized Relieving factors: exertion Exacerbating factors: rest Associated symptoms: Denies chest pain, chills, confusion, melena, decreased appetite, diaphoresis, dysuria, easy bruising, fever(s), headache(s), myalgias, nausea, rash, short of breath, syncope or vomiting Review of Systems Const: Denies: fever(s), chills or diaphoresis ENMT: Denies: throat pain, ear or mastoid pain, nasal discharge or nasal congestion Card: Denies: chest pain or syncope Resp: Denies: dyspnea, productive cough or non-productive cough GI: Denies: nausea, vomiting or melena : Denies: dysuria Skin/Breast: Denies: rash or pruritus Neuro: Denies: headache(s) or confusion Bruce/Lymph: Denies: easy bruising PFSH ED PFSH: Medical History Diabetes mellitus GI bleed Hypertension Family History Sister Cancer Brother Cancer Physical Exam Const: COMMON NORMALS: no acute distress GENERAL APPEARANCE: cooperative and comfortable ORIENTATION/CONSCIOUSNESS: Yes awake, Yes oriented to person, Yes oriented to place and Yes oriented to time HENMT: COMMON NORMALS: normocephalic, atraumatic and hearing grossly normal bilaterally HEAD & SCALP: normocephalic and atraumatic Neck/C-Spine: COMMON NORMALS: no JVD Resp: COMMON NORMALS: normal respiratory effort, No retractions, No use of accessory muscles and clear to auscultation bilaterally AUSCULTATION: clear to auscultation bilaterally Cardio: COMMON NORMALS: no JVD, regular rate, regular rhythm and No murmurs present (Cardio) RATE: regular rate RHYTHM: regular rhythm GI: COMMON NORMALS: Soft to palpation and No hepatosplenomegaly present AUSCULTATION: Yes normoactive bowel sounds PALPATION: Yes Soft to palpation, No Tenderness to palpation present (GI), No Guarding due to palpation present (GI) and Yes No hepatosplenomegaly present Extremity: COMMON NORMALS: normal to inspection, capillary refill normal, no clubbing, cyanosis or edema, no calf tenderness and no pedal edema Neuro: SENSORIUM/ORIENTATION: Yes oriented to person, Yes oriented to place and Yes oriented to time Skin: COMMON NORMALS: no rashes or lesions noted GENERAL SKIN EXAM: no rashes or lesions noted Course Vital Signs: Vital signs: Vital Signs Temperature 98.4 F 02/13/21 11:21 Pulse Rate 92 02/13/21 13:27 Respiratory Rate 18 02/13/21 13:27 Blood Pressure 149/93 02/13/21 13:27 Pulse Oximetry 98 02/13/21 13:27 MDM - Weakness MDM Narrative: Medical decision making narrative: Patient has had chronic bleeding with recurrent anemia. Recently was hospitalized. She feels very tired but otherwise okay. We transfused 1 unit repeat her hemoglobin is up to 7.9 and she would prefer to go home she does not want to be readmitted I do not think that is unreasonable at this point she is relatively asymptomatic her hemoglobin is improved she is feeling much better. We will go ahead and discharge her home I asked her to follow-up with her primary care doctor tomorrow to repeat hemoglobin return if she has worsening problems or notes any hematochezia or melena. Lab Data: Labs: Lab Results 02/13/21 02/13/21 02/13/21 06:14 06:14 06:45 WBC 8.7 10^3/uL 10^3/ uL (4.0-10.0) RBC 2.77 10^6/uL L 10 ^6/uL (4.1-5.3) Hgb 7.8 g/dL L g/dL (11.5-15.3) Hct 25.9 % L % (37.0-47.0) MCV 93.5 fl fl (81-99) MCH 28.2 pg pg (28.0-34.0) MCHC 30.1 g/dL g/dL (30.0-36.0) RDW 14.2 % % (12.1-15.1) Plt Count 360 10^3/cmm 10^3 /cmm (130-400) MPV 10.8 fL H fL (7.4-10.4) Neut % (Auto) 76.6 % % Lymph % (Auto) 16.8 % % [place] % (Auto) 4.3 % % Eos % (Auto) 1.2 % % Baso % (Auto) 0.8 % % Neut # (Auto) 6.64 10^3/uL 10^3 /uL (1.8-7.7) Lymph # (Auto) 1.5 10^3/uL 10^3/ uL (0.8-4.8) [place] # (Auto) 0.4 10^3/uL 10^3/ uL (0.2-0.9) Eos # (Auto) 0.1 10^3/uL 10^3/ uL (0.0-0.8) Baso # (Auto) 0.1 10^3/uL 10^3/ uL (0.0-0.1) Nucleated RBC % (a uto) 0 % % Nucleated RBCs # 0.0 /100WBC /100W BC Sodium 140 mmol/L mmol/L (136-145) Potassium 4.5 mmol/L mmol/L (3.5-5.1) Chloride 109 mmol/L H mmol /L (98-107) Carbon Dioxide 18 mmol/L L mmol/ L (22-29) Anion Gap 17.5 (5-19) BUN 22 mg/dL mg/dL (8-23) Creatinine 0.9 mg/dL mg/dL (0.5-0.9) GFR Calculation Not Reportable Glucose 235 mg/dL H mg/dL (65-115) Calculated Osmolal ity 301 mOsm/kg H mOs m/kg (285-295) Calcium 8.6 mg/dL mg/dL (8.5-10.5) Total Bilirubin 0.3 mg/dL mg/dL (0.15-1.2) AST 12 U/L U/L (0-32) ALT 12 U/L U/L (0-33) Alkaline Phosphata se 83 IU/L IU/L (35-105) Creatine Kinase 22 U/L L U/L (26-192) Total Protein 5.1 g/dL L g/dL (6.6-8.7) Albumin 3.4 g/dL L g/dL (3.5-5.2) Globulin 1.7 g/dL g/dL (1.3-4.6) Blood Type A Positive Rho(D) Type Positive Antibody Screen Negative Crossmatch See Detail 02/13/21 12:20 WBC RBC Hgb 7.9 g/dL L g/dL (11.5-15.3) Hct MCV MCH MCHC RDW Plt Count MPV Neut % (Auto) Lymph % (Auto) [place] % (Auto) Eos % (Auto) Baso % (Auto) Neut # (Auto) Lymph # (Auto) [place] # (Auto) Eos # (Auto) Baso # (Auto) Nucleated RBC % (a uto) Nucleated RBCs # Sodium Potassium Chloride Carbon Dioxide Anion Gap BUN Creatinine GFR Calculation Glucose Calculated Osmolal ity Calcium Total Bilirubin AST ALT Alkaline Phosphata se Creatine Kinase Total Protein Albumin Globulin Blood Type Rho(D) Type Antibody Screen Crossmatch Discharge Plan Discharge Patient Disposition: Home Clinical Impression: Anemia, Chronic GI bleeding Condition: Stable Prescriptions: No Action metoprolol tartrate 100 mg Tablet 100 mg PO BID RF: 0 glimepiride 1 mg Tablet 1 mg PO BID RF: 0 amlodipine 10 mg Tablet 10 mg PO BID RF: 0 olmesartan 40 mg Tablet 40 mg PO QAM RF: 0 ropinirole 1 mg Tablet 1 mg PO BEDTIME RF: 0 Lantus U-100 Insulin 100 unit/mL solution 80 unit SUBCUT QAM RF: 0 tramadol 50 mg tablet 50 mg PO QID PRN (Reason: Pain) RF: 0 FeroSul 325 mg (65 mg iron) tablet 325 mg PO DAILY RF: 0 Protonix [address] for susp in packet 40 mg PO DAILY RF: 0 Discharge Orders: Discharge ED (Routine); Ordered 02/13/21 Ordered By: Glenn Mccoy Referrals: Cade Meza MD [Primary Care Provider] - Discharge Diet: Clear Liquid Discharge Activity: Increase activity as tolerated Patient Instructions: Opioid Safety Activity Restrictions/Additional Instructions: Follow-up for repeat hemoglobin hematocrit tomorrow at your primary care doctor's office if you have worsening symptoms or bright red blood per rectum return to the ER. Coding Level of Care Code ED Credit Card Control Clerk for Marty Fwwilfredo Exam Comprehensive
[2021-02-13 06:43] LABS: Alanine Aminotransferase 12 U/L (0-33); Albumin Level 3.4 g/dL (3.5-5.2); Alkaline Phosphatase 83 IU/L (35-105); Anion Gap 17.5 (5-19); Aspartate Amino Transferase 12 U/L (0-32); Blood Urea Nitrogen 22 mg/dL (8-23); Calcium 8.6 mg/dL (8.5-10.5); Carbon Dioxide 18 mmol/L (22-29); Chloride 109 mmol/L (98-107); Creatine Phosphokinase 22 U/L (26-192); Globulin 1.7 g/dL (1.3-4.6); Glucose 235 mg/dL (65-115); Osmolality Calculated 301 mOsm/kg (285-295); Potassium 4.5 mmol/L (3.5-5.1); Sodium 140 mmol/L (136-145); Total Bilirubin 0.3 mg/dL (0.15-1.2); Total Protein 5.1 g/dL (6.6-8.7)
[2021-02-13] MEDS: sodium chloride 0.9% (100 ml) 100 ML (09:35)
--- NOTE | 2021-02-13 09:49 | PC.PHAR ---
PT STATES SHE TAKES CARE OF HER OWN MEDICATIONS-PT STATES PUT HER LASIX AND KCL ON HOLD IN JANUARY-LASIX 40MG BID FILLED ON 12/27/20 90D/S AND KCL ER 20MEQ DAILY FILLED ON 12/26/20 30D/S-
--- NOTE | 2021-02-13 09:53 | PC.NURSE ---
Blood transfusion infusing at this time. Patient educated on side effects and when to notify nurse of concerns. Patient verbalized understanding.
[2021-02-13 12:27] LABS: Hemoglobin 7.9 g/dL (11.5-15.3)
== END 2021-02-13 13:28 | disposition home or self-care (01) ==
PROVIDERS: Emergency Provider Family Medicine; PCP Family Medicine
DX: D64.9 Anemia, unspecified (principal); K92.2 Gastrointestinal hemorrhage, unspecified; Z79.4 Long term (current) use of insulin; Z79.84 Long term (current) use of oral hypoglycemic drugs; E11.9 Type 2 diabetes mellitus without complications; I10 Essential (primary) hypertension
CPT/HCPCS: 36415; 36430; 71045; 80053; 82550; 85018; 85025; 86850; 86900; 86920; 93005; 99284; P9016